=== PATIENT | female | born 1940 | race Caucasian/White ===

== ENCOUNTER 2018-08-25 06:37 | Day surgery (SDC) | payer MEDICARE ==
[~2018-08-25] VITALS: Ht 152.4 cm; Wt 73.9 kg
[~2018-08-25 06:37] MED LIST: ACETAMINOPHEN 325 MG TAB PO PRN; DOXA2TAB3 PO; HYDR-3911 PO; METO100T5 PO; SIMV20TA2 PO
[2018-08-25] MEDS ORDERED: POVIDONE-IODINE 5% OPHTH PREP SOL 30ML As Ordered ONE (06:40)
[2018-08-25] MEDS ORDERED: LIDOCAINE 1% SDV 5 ML VIAL As Ordered ONE (06:41)
[2018-08-25] MEDS ORDERED: CEFUROXIME 1MG/0.1ML INTRACAMERAL INJ As Ordered ONE (06:41)
[2018-08-25] MEDS ORDERED: HEALON DUET PRO(HEALON 10MG/ML 0.55ML & HEALON ENDOCOAT 30MG/ML 0.85ML) As Ordered ONE (06:41)
[2018-08-25] MEDS ORDERED: BALANCED SALT IRRIGATION SOLUTION 500ML BAG (FOR OR EYE MACHINE) As Ordered ONE (06:41)
[2018-08-25] MEDS ORDERED: LIDOCAINE 3.5 % 1ML OPHTH TOPICAL GEL OU ONE (07:00)
[2018-08-25] MEDS ORDERED: CYCLOPENTOLATE 2% OPHTH SOLN 2ML BTL OS ONE (07:00)
[2018-08-25] MEDS ORDERED: PHENYLEPHRINE 2.5% OPHTH SOL 2ML OS ONE (07:00)
[2018-08-25] MEDS ORDERED: PHENYLEPHRINE HCL 10 % OPHTH. SOL 5ML OS PRN (07:00)
[2018-08-25] MEDS ORDERED: OFLOXACIN 0.3 % (OCUFLOX) OPTH SOL 5ML OS ONE (07:00)
[2018-08-25] MEDS ORDERED: TROPICAMIDE 1% OPHTH SOLN 2ML OS ONE (07:00)
[2018-08-25] MEDS ORDERED: PROPARACAINE 0.5% OPHTH SOL 15ML OS PRN (07:01)
[2018-08-25] MEDS ORDERED: fentaNYL 100 MCG/2 ML INJECTION (J3010) As Ordered ONE (08:00)
[2018-08-25] MEDS ORDERED: MIDAZOLAM INJ 2 MG/2 ML VIAL (J2250) As Ordered ONE (08:00)
[2018-08-25] MEDS ORDERED: KETOROLAC 0.5% OPHTH SOLN OS ONE (08:45)
[2018-08-25] MEDS ORDERED: TRIMETHOBENZAMIDE 300 MG CAP PO PRN (08:45)
[2018-08-25] MEDS ORDERED: AcetaZOLAMIDE 500 MG ER CAP PO ONE (08:45)
[2018-08-25 08:52] VITALS: BP 166/76
--- NOTE | 2018-08-26 16:27 | RO ---
DATE OF PROCEDURE: 08/25/2018 PREPROCEDURE DIAGNOSIS: Age-related nuclear cataract left eye. POSTPROCEDURE DIAGNOSIS: Age-related nuclear cataract left eye. PROCEDURE: Phacoemulsification and posterior chamber intraocular lens implantation. The lens used was AU00T0, 21.5 diopter. SURGEON: Marilee Sanches MD INSTRUMENTATION SPECIALIST: ANESTHESIA: Topical with sedation. DESCRIPTION OF PROCEDURE: The patient was prepped and draped in the usual fashion. A lid speculum was placed between the lids. The eye was fixated. A stab incision was made to the anterior chamber, and 1% nonpreserved lidocaine was instilled. Then, viscoelastic was instilled. The eye was re-fixated. A 2.75 mm sapphire keratome was used to make a clear corneal temporal limbal incision. Capsulorrhexis was begun with a 30-gauge bent needle and then carried out in a circular fashion with capsulorrhexis forceps. The lens was hydrodissected, and then the phacoemulsification unit was used to make a groove in the nucleus in two meridians. The nucleus was then cracked into four quadrants. Each quadrant was removed with the phacoemulsification unit. Any remaining cortex was removed with the irrigation and aspiration (I and A) unit. Capsular bag was refilled with viscoelastic. A posterior chamber intraocular lens was placed in the capsular bag without difficulty. Any remaining viscoelastic was removed with the I and A unit. The wound was hydrated, and Miochol and cefuroxime were instilled into the anterior chamber. The patient tolerated the procedure well and went to the recovery room in stable condition.
== END 2018-08-25 08:53 | disposition home or self-care (01) ==
LOC: M SDC 06:37
PROVIDERS: ATTEND Ophthalmology
DX: H25.12 Age-related nuclear cataract, left eye (principal); I10 Essential (primary) hypertension; E78.5 Hyperlipidemia, unspecified; K21.9 Gastro-esophageal reflux disease without esophagitis; F17.210 Nicotine dependence, cigarettes, uncomplicated; Z79.899 Other long term (current) drug therapy
CPT/HCPCS: 66984; 92015; J2250; J3010; V2632

== ENCOUNTER 2018-09-01 07:34 | Day surgery (SDC) | payer MEDICARE ==
[~2018-09-01] VITALS: Ht 152.4 cm; Wt 74.4 kg
[~2018-09-01 07:34] MED LIST changes: +BALANCED SALT IRRIGATION SOLUTION 500ML BAG (FOR OR EYE MACHINE) As Ordered ONE; +CEFUROXIME 1MG/0.1ML INTRACAMERAL INJ As Ordered ONE; +CYCLOPENTOLATE 2% OPHTH SOLN 2ML BTL OD ONE; +HEALON DUET PRO(HEALON 10MG/ML 0.55ML & HEALON ENDOCOAT 30MG/ML 0.85ML) As Ordered ONE; +LIDOCAINE 1% SDV 5 ML VIAL As Ordered ONE; +LIDOCAINE 3.5 % 1ML OPHTH TOPICAL GEL OU ONE; +OFLOXACIN 0.3 % (OCUFLOX) OPTH SOL 5ML OD ONE; +PHENYLEPHRINE 2.5% OPHTH SOL 2ML OD ONE; +PHENYLEPHRINE HCL 10 % OPHTH. SOL 5ML OD PRN; +POVIDONE-IODINE 5% OPHTH PREP SOL 30ML As Ordered ONE; +PROPARACAINE 0.5% OPHTH SOL 15ML OD PRN; +TROPICAMIDE 1% OPHTH SOLN 2ML OD ONE
[2018-09-01] MEDS ORDERED: MIDAZOLAM INJ 2 MG/2 ML VIAL (J2250) As Ordered ONE ×2 (09:25→10:26)
[2018-09-01] MEDS ORDERED: fentaNYL 100 MCG/2 ML INJECTION (J3010) As Ordered ONE ×2 (09:25→10:26)
[2018-09-01] MEDS ORDERED: TRIMETHOBENZAMIDE 300 MG CAP PO PRN (09:30)
[2018-09-01] MEDS ORDERED: AcetaZOLAMIDE 500 MG ER CAP PO ONE (09:30)
[2018-09-01] MEDS ORDERED: KETOROLAC 0.5% OPHTH SOLN OD ONE (09:30)
[2018-09-01 09:41] VITALS: BP 164/72
--- NOTE | 2018-09-02 07:56 | RO ---
DATE OF PROCEDURE: 09/01/2018 PREPROCEDURE DIAGNOSIS: Age-related nuclear cataract, right eye. POSTPROCEDURE DIAGNOSIS: Age-related nuclear cataract, right eye. PROCEDURE: Phacoemulsification and posterior chamber intraocular lens implantation, right eye. The lens used was AU00T0, 21.0 diopter. SURGEON: Marilee Sanches MD SERVICE MECHANIC: ANESTHESIA: Topical with sedation. DESCRIPTION OF PROCEDURE: The patient was prepped and draped in the usual fashion. A lid speculum was placed between the lids. The eye was fixated. A stab incision was made to the anterior chamber, and 1% non-preserved lidocaine was instilled. Then, viscoelastic was instilled. The eye was re-fixated. A 2.75 mm sapphire keratome was used to make a clear corneal temporal limbal incision. Capsulorrhexis was begun with a 30-gauge bent needle and then carried out in a circular fashion with capsulorrhexis forceps. The lens was hydrodissected, and then the phacoemulsification unit was used to make a groove in the nucleus in two meridians. The nucleus was then cracked into four quadrants. Each quadrant was removed with the phacoemulsification unit. Any remaining cortex was removed with the irrigation and aspiration (I and A) unit. Capsular bag was refilled with viscoelastic. A posterior chamber intraocular lens was placed in the capsular bag without difficulty. Any remaining viscoelastic was removed with the I and A unit. The wound was hydrated, and Miochol and cefuroxime were instilled into the anterior chamber. The patient tolerated the procedure well and went to the recovery room in stable condition.
== END 2018-09-01 09:52 | disposition home or self-care (01) ==
LOC: M SDC 07:34 → EDUNIT# 10:30
PROVIDERS: ATTEND Ophthalmology
DX: H25.11 Age-related nuclear cataract, right eye (principal); I10 Essential (primary) hypertension; E78.00 Pure hypercholesterolemia, unspecified; K21.9 Gastro-esophageal reflux disease without esophagitis; Z72.0 Tobacco use; Z78.0 Asymptomatic menopausal state; Z79.899 Other long term (current) drug therapy; Z98.42 Cataract extraction status, left eye
CPT/HCPCS: 66984; 92015; J2250; J3010; V2632

== ENCOUNTER → 2018-12-04 | Outpatient (REF) ==
[~2018-12-04] MED LIST changes: -ACETAMINOPHEN 325 MG TAB PO PRN; -BALANCED SALT IRRIGATION SOLUTION 500ML BAG (FOR OR EYE MACHINE) As Ordered ONE; -CEFUROXIME 1MG/0.1ML INTRACAMERAL INJ As Ordered ONE; -CYCLOPENTOLATE 2% OPHTH SOLN 2ML BTL OD ONE; -HEALON DUET PRO(HEALON 10MG/ML 0.55ML & HEALON ENDOCOAT 30MG/ML 0.85ML) As Ordered ONE; -LIDOCAINE 1% SDV 5 ML VIAL As Ordered ONE; -LIDOCAINE 3.5 % 1ML OPHTH TOPICAL GEL OU ONE; -OFLOXACIN 0.3 % (OCUFLOX) OPTH SOL 5ML OD ONE; -PHENYLEPHRINE 2.5% OPHTH SOL 2ML OD ONE; -PHENYLEPHRINE HCL 10 % OPHTH. SOL 5ML OD PRN; -POVIDONE-IODINE 5% OPHTH PREP SOL 30ML As Ordered ONE; -PROPARACAINE 0.5% OPHTH SOL 15ML OD PRN; -TROPICAMIDE 1% OPHTH SOLN 2ML OD ONE
[2018-12-04 13:59] LABS: ALBUMIN 1.7 GM/DL (3.2-5.2); ALT/SGPT 33 U/L (12-78); BILIRUBIN,TOTAL 0.3 MG/DL (0.2-1.0); BLOOD UREA NITROGEN 23 MG/DL (7-18); CARBON DIOXIDE LEVEL 34 MEQ/L (21-32); CHLORIDE LEVEL 108 MEQ/L (98-107); CREATININE FOR GFR 0.53 MG/DL (0.55-1.30); GLOMERULAR FILTRATION RATE > 60.0 (>39); GLUCOSE, FASTING 93 MG/DL (70-100); MAGNESIUM LEVEL 1.7 MG/DL (1.8-2.4); POTASSIUM SERUM 3.3 MEQ/L (3.5-5.1); SODIUM LEVEL 149 MEQ/L (136-145); TOTAL PROTEIN 4.3 GM/DL (6.4-8.2)
== END ==
LOC: M LAB REF 05:05
DX: Z00.00 Encounter for general adult medical examination without abnormal findings (principal)